=== PATIENT | male | born 1995 | race Hispanic/Latino ===

== ENCOUNTER 2021-04-07 07:09 | Emergency (ER) | payer SELFPAY | END 2021-04-07 07:41 | disposition home or self-care (01) | LOC: ERS 07:09 | DX: R11.2 Nausea with vomiting, unspecified (principal); F17.210 Nicotine dependence, cigarettes, uncomplicated | CPT/HCPCS: 99283 ==

== ENCOUNTER 2021-04-11 14:46 | Emergency (ER) | payer SELFPAY ==
[2021-04-11] MEDS ORDERED: Ondansetron ODT 4 MG TAB ONE (15:23)
== END 2021-04-11 15:45 | disposition home or self-care (01) ==
LOC: ERS 14:46
DX: R11.2 Nausea with vomiting, unspecified (principal); F17.210 Nicotine dependence, cigarettes, uncomplicated
CPT/HCPCS: 99283; Q0162

== ENCOUNTER 2021-05-16 13:16 | Emergency (ER) | payer SELFPAY | END 2021-05-16 17:36 | disposition left against medical advice (07) | LOC: ERS 13:16 | DX: Z53.21 Procedure and treatment not carried out due to patient leaving prior to being seen by health care provider (principal) ==

== ENCOUNTER 2021-05-16 23:43 | Emergency (ER) | payer SELFPAY | END 2021-05-17 01:29 | disposition home or self-care (01) | LOC: ERS 23:43 | DX: R11.2 Nausea with vomiting, unspecified (principal); F17.210 Nicotine dependence, cigarettes, uncomplicated | CPT/HCPCS: 99281 ==

== ENCOUNTER 2021-06-21 21:06 | Emergency (ER) | payer SELFPAY ==
[2021-06-21 22:01] LABS: Bilirubin Negative (Negative); Blood, Urine 2+ (Negative); Clarity Extra Turbid (Clear); Glucose, Urine (Dipstick) Normal (Negative); Ketone, Urine 100 mg/dL (Negative); Leukocyte 500 Leu/uL (Negative); Nitrite Negative (Negative); Protein, Urine (Dipstick) 70 mg/dL (Neg-Trace); Specific Gravity, Urine 1.031 (1.002-1.036); Squamous Epithelial None Seen HPF (0-3)
[2021-06-21 22:08] LABS: WBC/HPF Greater than 50 HPF (0-3)
[2021-06-21 22:14] LABS: Bacteria/HPF 2+ HPF (None Seen)
[2021-06-21] MEDS ORDERED: cefTRIAXone\\ROCEPHIN 500 MG VIAL ONE (22:32)
[2021-06-21] MEDS ORDERED: Lidocaine 1% PF 5 ML VIAL ONE (22:32)
[2021-06-22 18:22] LABS: Chlam.trachomatis by PCR,Urine DETECTED (NotDetected)
== END 2021-06-21 23:05 | disposition home or self-care (01) ==
LOC: ERS 21:06
DX: N34.2 Other urethritis (principal); F17.210 Nicotine dependence, cigarettes, uncomplicated
CPT/HCPCS: 81003; 81015; 87086; 87491; 87591; 96372; 99283; J0696